=== PATIENT | female | born 1985 | race Caucasian/White ===

== ENCOUNTER 2016-08-02 03:17 | Observation (INO) | payer BC ==
[~2016-08-02] VITALS: Ht 170.2 cm; Wt 135.2 kg
--- NOTE | 2016-08-02 07:09 | ER ---
ADMIT: 08/02/2016 RM/LOC: 310 [facility] MR#: [id number] 2620 [facility] [address] [place], [place] [address] JARVIS CARRERA [address] [address] Emergency Room Report SEX: F AGE: 30 : 1985 DATE: 08/02/2016 CHIEF COMPLAINT: Obtunded. HISTORY OF PRESENT ILLNESS: The patient is a 30-year-old female with complex psychiatric history. Transferred tonight by [facility] for increasing delirium over the weekend since being titrated off Zoloft and titrated up on Prozac by [facility]. Patient was evaluated earlier in the day by Lissett Oviedo at [facility], who discussed with family admission. The patient and mother denies any headache, recent fall, fevers, chills, cough, nausea, vomiting, diarrhea or urinary symptoms. Likewise, denies any overdose, suicidal ideation or past history of suicide. PAST MEDICAL HISTORY: ILLNESSES: Idiopathic sinus tachycardia, cause unknown; depression; ADHD; anxiety; fibromyalgia; irritable bowel syndrome; anaphylaxis to the cefprozil with serum sickness; cervical cancer; kidney stones. OPERATIONS: Cervical cold cone, septorhinoplasty, extracorporeal shock wave lithotripsy and stents. ALLERGIES: MULTIPLE, PLEASE SEE ELECTRONIC MEDICAL RECORD. MEDICATIONS: Please see nurse's MAR. 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 Occasional alcoholic beverage and smoking. No illicit drugs. FAMILY HISTORY: Negative per chart review. REVIEW OF SYSTEMS: A 12-point review of systems negative for all other systems, illnesses, or operations except as outlined above. PHYSICAL EXAMINATION: VITAL SIGNS: Temp 97.1, pulse 69, respirations 22, BP 86/73, SaO2 of 97% on room air. GENERAL: Obtunded, delirious, but will respond to verbal stimuli. Able to protect her own airway. No jaundice, icterus or diaphoresis. HEENT: Normocephalic. No evidence of trauma, epistaxis, rhinorrhea or otorrhea. NECK: Supple without meningismus. CHEST: Clear. Breath sounds equal. HEART: Regular rate and rhythm without murmur, gallop, or edema. ABDOMEN: Soft, obese, nontender, nondistended without mass or megaly. Bowel sounds hypoactive. EXTREMITIES: No evidence of Homans sign, synovitis, or dermatitis. NEURO: EOMI, PERRLA. No lateralizing signs. She will stand, bear weight, but is ataxic. MENTAL STATUS: Slurred speech, delirium, depressed mood, blunted affect. Denies suicidal ideation. MEDICAL DECISION MAKING: The patient is hypotensive and obtunded with ADMIT: 08/02/2016 RM/LOC: 310 [facility] MR#: [id number] [address] [address] JARVIS CARRERA [address] [place] [address] Emergency Room Report SEX: F AGE: 30 : 1985 syndrome consistent with narcotic overdose. The patient was given Narcan 0.8 mg over the course of 20 minutes with no change, followed then by Romazicon 0.5 mg with no change. The patient was given a fluid bolus. Syndrome is now most consistent with drug-induced delirium from multiple psychotropics. Recommend drug-free washout and close observation. Discussed case with Dr. Mckeon, who agreed and gave orders to nursing staff. Due to patient's hypotension, delirium, and obtunded mental state, ICU status is required. Due to the patient's presentation, findings, and intervention, 30 minutes of critical care is warranted. DIAGNOSES: 1. Drug-induced delirium. 2. History of anaphylaxis due to cefprozil with serum sickness. 3. Mastocytosis. 4. Depression. RECOMMENDATION: Admit inpatient ICU for Dr. Eduin Tsai. ADMISSION/DISCHARGE CONDITION: Stable. Patient is a full code. Onofre Maurer MD/ nate JOB #: [id number] CC: Eduin Tsai MD, Attending Physician Eduin Tsai MD, Family Physician Eduin Tsai MD
--- NOTE | 2016-08-03 16:45 | HP ---
ADMIT: 08/02/2016 RM/LOC: 310 [facility] MR#: [id number] 2620 [facility] [id number] [place], [place] [address] JARVIS CARRERA [address] [address] History and Physical SEX: F AGE: 30 : 1985 DATE OF SERVICE: CHIEF COMPLAINT: Increasing lethargy and disorientation over the last 48 hours - possible seizure 24 hours prior to presentation in the ER. HISTORY OF PRESENT ILLNESS: Jarvis is a 30-year-old woman with a very complicated past medical history as outlined below. She had been hospitalized here at [place] from 02/15/2016 to 02/21/2016 with acute serum sickness with anaphylaxis - apparently secondary to cephalosporin, this on top of her chronic anxiety and depression. We had consultations from Dermatology, Rheumatology, Infectious Disease, and Critical Care. She was then subsequently transferred by helicopter to [facility] where she was hospitalized for several more weeks both in acute stay area and rehab with the final diagnosis there of a "mass cell activation disorder"-for which she has been followed by Dr. Lorie Emmanuel, at [facility]. As part of her [facility] evaluation, it was felt that she might have underlying other psychiatric illness including bipolar disorder or just chronic anxiety and severe depression. She had been on a number of different medications. She had been followed by a mental health professional Marlee Ward NP, since her dismissal from the hospital here in [place]. Ms. Ward had apparently left and she saw Dr. Wing last week and "he did a new scan to determine where my brain damage is located." Apparently new scan is something "they can only do in [place]." He then changed her medications. He discontinued Rexulti (antipsychotic), had her wean her Zoloft from 200-150 mg and then continued downward titration. He added Prozac 40 mg daily and then Vyvanse 30 mg (that was last added about 4 days ago). Two nights ago, she began having all kinds of neurologic symptoms including a hard time breathing, slurred speech, difficulty urinating, diarrhea, and an apparent seizure that lasted about a minute and "was consistent with seizures that were diagnosed in [place]." She had facial drooping, no control of her tongue, and some generalized shaking. This resolved over about a minute and a half, but she continued to complain of headache and felt nauseated and felt faint. At home, she felt short of breath and O2 sats were 88%. She was seen in our office yesterday by Lissett Mendez PA-C in conjunction with Dr. Isacc Mckeon. By the time of that visit, she seemed pretty much back to baseline and her general physical and neurologic exam was essentially normal except for an unsteady gait. She was oriented x3 and had a little difficulty forming sentences and at times "appeared sleepy." At that point, her Prozac and Vyvanse were held and she was to speak to Dr. Wing today about it. She took her Zoloft 150 mg yesterday although retrospectively now, she states she is not taking any of her psychoactives for the last 48 hours. She then became increasingly delirious and confused and was brought into the emergency room by [facility] last evening at about 0300 hours or so. They found her to be hypotensive and obtunded "consistent with a med overdose." She did respond to verbal stimuli in the emergency room and she was able to protect her own airway. Her general physical exam is otherwise relatively benign except for slurred speech, depressed mood, blunted affect. She had fluid resuscitation in the emergency room and due to her hypotension and delirium, she was admitted to ICU. Since admission here, her mental status has essentially cleared except for "a little ADMIT: 08/02/2016 RM/LOC: 310 [facility] MR#: [id number] [address] [address] DEBI JARVIS M [address] [place] [address] History and Physical SEX: F AGE: 30 : 1985 trouble forming sentences" and she still has a bit of a headache. She states she still occasionally "sees some bright lights like seizures are going to happen again but I hope it does not." Otherwise her vital signs have been normal since the emergency room to ICU transfer. Abnormal laboratory studies in the ER include potassium of 2.8 mmol/L, calcium 6.7 mg/dL and magnesium 1.6 mg/dL - those have been replaced. PAST MEDICAL HISTORY: Again is complex. She was hospitalized from 02/15/2016 to 02/21/2016, here with acute serum sickness and anaphylaxis apparently with the cephalosporins this on top of her chronic anxiety and depression. She carries a diagnosis of possible bipolar disorder and ADHD with hyperactivity. She has generalized edema and has gained considerable weight since this episode. She has a generalized anxiety disorder and history of irritable bowel syndrome. She quit smoking in 2012. She has had intermittent issues with sinus tachycardia. She carries other diagnoses of history of abnormal Pap smears with cervical conization years ago, septorhinoplasty, kidney stones with extra corporeal shock wave lithotripsy and stents. CURRENT MEDICATIONS: Include: 1. Aerospan 80 mcg inhaled b.i.d. 2. Ambien 10 mg at bedtime. 3. Cetirizine 10 mg at bedtime. 4. Benadryl 50 mg q.6 hours p.r.n. 5. Dymista 137/50 mcg nasal solution. 6. EpiPen p.r.n. 7. Hydroxyzine 25 mg 3 at bedtime. 8. Lasix 40 mg one daily. 9. Lorazepam 1 mg q.8 hours p.r.n. 10.Metoprolol tartrate 25 mg 1/2 tab b.i.d. 11.Microgestin 1/20 tablet once a day. 12.MiraLax 17 g in juice daily. 13.Pazeo 0.7% ophthalmic solution b.i.d. 14.Protonix 40 mg daily. 15.Prozac 40 mg daily (new prescription). 16.Rexulti - recently on hold. 17.Singulair 10 mg daily. 18.Topamax 100 mg at bedtime. 19.Vyvanse 30 mg once a day (new prescription). 20.Xopenex inhaler p.r.n. 21.Zantac 150 mg b.i.d. 22.Zoloft 100 mg 2 daily (now on a taper). ALLERGIES: SHE REPORTS ALLERGIES TO NAPROXEN AND IS TO HAVE NO NSAIDS, CEPHALOSPORINS, CLINDAMYCIN, CODEINE (WITH EMESIS) AND MORPHINE (ASTHMA/SHORTNESS OF BREATH). 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 She drinks 1-2 cups of ADMIT: 08/02/2016 RM/LOC: 310 [facility] MR#: [id number] [address] [address] JARVIS CARRERA [address] [place] [address] History and Physical SEX: F AGE: 30 : 1985 coffee per day. She has quit smoking. She does not use alcohol. She lives in her home alone with her daughter but her parents are very attentive to her. FAMILY HISTORY: Positive for diabetes, asthma, and allergy. REVIEW OF SYSTEMS: Showing still some headache. She has not recently been ill in any other way. Denies any upper respiratory or gastrointestinal symptoms. She states she is swallowing well now. She has had no shortness of breath, but "I still have some discomfort in middle of my chest." She has had no cardiac dysrhythmias. She states bladder and bowel functions have been normal. Her generalized edema is persistent. There is no history for neurologic illnesses other than she has the above noted history for psychiatric illness. PHYSICAL EXAMINATION: GENERAL: In the ICU now, she is alert, sitting upright in no apparent distress. Seems oriented x3. VITAL SIGNS: Have shown that she is afebrile since admission. Pulses have ranged from 50-90 and then normal sinus rhythm. Blood pressures have ranged in the low-to-mid 90 systolic. HEENT: Her oral mucosa is reasonably hydrated. NECK: Supple. LUNGS: Actually clear anteriorly. CARDIAC: Regular without murmur. ABDOMEN: Soft without mass or tenderness. EXTREMITIES: Lower extremities show trace to 1+ edema. GENERAL NEUROLOGIC: Shows no focal neurologic signs. IMPRESSION: 1. Delirium with possible seizure - probable medication reaction. 2. Mast cell activation disorder. 3. Underlying psychiatric illness. 4. Status post several operations outlined above. PLAN: We will move her from ICU as her vitals seem stable. We will get Neurology consultation. We will notify Dr. Emmanuel of her admission. Let us see ADMIT: 08/02/2016 RM/LOC: 310 [facility] MR#: [id number] [address] [place] [id number] [place] [address] History and Physical SEX: F AGE: 30 : 1985 if we can get Psych consult through [facility] telemetry and then have her follow up with [facility] psychiatrist. We will continue to replace her potassium and magnesium. We will get Physical Therapy and Occupational Therapy involved to increase her activities and see how she does with that. I failed to mention above that her drug screen was positive for benzodiazepines and amphetamines - we will check to see of Vyvanse can cause a positive amphetamine test on drug screen - I anticipate it does! Again, there is no real history for illicit drug use. Further treatment will depend on her response to her initial therapies and the consultations. Eduin Tsai MD/ nate JOB #: [id number] CC: Eduin Tsai, Attending Physician Eduin Tsai, Family Physician
--- NOTE | 2016-08-04 11:29 | CO ---
ADMIT: 08/02/2016 RM/LOC: 505 [facility] MR#: [id number] [address] [address] JARVIS CARRERA [address] [address] Consultation SEX: F AGE: 30 : 1985 DATE OF CONSULTATION: 08/03/2016 ATTENDING PHYSICIAN: Eduni Tsai CONSULTING PHYSICIAN: John Malloy MD DATA: This is a 30-year-old female, currently admitted at [facility]. Consultation requested by local provider per hospital policy. DIAGNOSES AT THE TIME OF EVALUATION: F33.2 major depressive disorder, recurrent severe without psychotic features. F60.9 borderline personality disorder, posttraumatic stress disorder with dissociative symptoms and generalized anxiety disorder. RECOMMENDATIONS: After talking about risks, benefits, side-effects, and alternatives, the patient voiced understanding and consent for discontinuing Prozac and starting Trintellix 10 mg every day. Also all the other medications have been discontinued including Zoloft and Vyvanse. She is okay to continue on Topamax only plus whatever is for medical reasons. HISTORY: This lady ended up in the hospital recently in delirium basically for what later appeared to have serotonin syndrome. The patient is on psychotropic medications, so a psychiatric evaluation was requested. So, I reviewed the electronic records, the paper records, talked to the nurse for collateral information and finally I spoke with the patient face to face while she was in the company of her mother with her permission on screen using [employer]. The video and the audio were adequate for this session. The patient is a good historian. She states that her problems started very early in childhood because she has always been anxious. Anxiety is a daily event and she ended up not sleeping because of that. She ended up being tired because of being still anxious, kind of never actually controlled. The anxiety waxes and wanes, but is there most of the time. The patient also has had periods of serious depression longer than 2 weeks. Accompanied the depression, there is anhedonia, decreased concentration, decreased level of energy, hopeless, and helplessness. The patient has been before diagnosed with bipolar disorder, but the patient has not had even 1 day that might actually be considered myah or hypomania. Nevertheless, she has a long history of very intense affect instability, chronic feelings of emptiness, chronic low self-esteem, self-harm and even dissociation which might have come under the diagnosis. The patient has had occasional instances of her name being called when nobody was around but not more than that. She does not have any obsessional compulsion, no problems with eating disorder or gambling. She in last February had an anaphylactic shock and she ended up having intrusive memories, nightmares and startle response and a diagnosis of PTSD. The patient had been recently being on high dose of Zoloft, fluoxetine, and Vyvanse at the same time. SOCIAL HISTORY: The patient is a smoker, but not a drinker or drug user. ADMIT: 08/02/2016 RM/LOC: 505 [facility] MR#: [id number] [address] [address] JARVIS CARRERA [address] [place] [address] Consultation SEX: F AGE: 30 : 1985 PAST PSYCHIATRIC HISTORY: One previous psychiatric hospitalization at [facility] after the anaphylactic shock actually for being suicidal. No actual suicidal events. She sees a therapist in [place], Sola Beltrán. PAST MEDICAL HISTORY: Per history and physical. The patient actually apart from what is said, also snores, headaches, and sleepiness but her home sleep study that was negative. No sleep apnea. REVIEW OF SYSTEMS: The patient has above given medical and psychiatric problems. PERSONAL HISTORY: She lives in [place] with her daughter. She is a teacher, actually single. No legal problems or history of being in the . HISTORY OF ABUSE: She has never been abused physically, sexually, or psychologically, but after the anaphylactic shock, she meets the criteria for PTSD. FAMILY HISTORY: Noncontributory for psychiatric reason. MENTAL STATUS EXAMINATION: lady, cooperative. Good hygiene, good eye contact. No psychomotor agitation or retardation. Speech is normal in volume and production. Mood is described as depressed, anxious. Affect is broad and appropriate to thought content. Thought content level; the patient denies suicidal or homicidal ideation. No auditory hallucination. No delusional thoughts. Thought process; coherent, congruent. No loosening of association. Insight and judgment seemed to be fair to good. Memory is within normal limits. She is alert and oriented. Intelligence is average. STRENGTH: Intelligence. BARRIERS: Coping skills. John Malloy MD/ nate JOB #: [id number] CC: Eduin Tsai, Attending Physician Eduin Tsai, Family Physician
[2016-08-04] MEDS ORDERED: AMBIEN DPS10 MG PO (12:54)
[2016-08-04] MEDS ORDERED: XOPENEX HFA15 GM IH (12:54)
[2016-08-04] MEDS ORDERED: MICROGESTIN 211 EACH PO (12:54)
[2016-08-04] MEDS ORDERED: ZYRTEC DPS10 MG PO (12:55)
[2016-08-04] MEDS ORDERED: BENADRYL-DPS50 MG PO (12:56)
[2016-08-04] MEDS ORDERED: MICRO-K DPS10 MEQ PO (12:57)
[2016-08-04] MEDS ORDERED: ATIVAN-DPS1 MG PO (12:57)
[2017-01-23] MEDS ORDERED: AEROSPAN8.9 GM IH (14:11)
[2017-01-23] MEDS ORDERED: DYMISTA NASAL S23 GM NS (14:13)
[2017-01-23] MEDS ORDERED: LASIX DPS40 MG PO (14:13)
[2017-01-23] MEDS ORDERED: ALLEGRA ALLERG180 MG PO (14:14)
[2017-01-23] MEDS ORDERED: BENADRYL25 MG PO (14:14)
[2017-01-23] MEDS ORDERED: BUSPIRONE HCL7.5 MG PO (14:15)
[2017-01-23] MEDS ORDERED: LOESTRIN 21 1-1 EACH PO (14:15)
[2017-01-23] MEDS ORDERED: MONTELUKAST SOD10 MG PO (14:16)
[2017-01-23] MEDS ORDERED: PAZEO2.5 ML OU (14:16)
[2017-01-23] MEDS ORDERED: MIRALAX PACKET17 GM PO (14:16)
[2017-01-23] MEDS ORDERED: PROTONIX40 MG PO (14:16)
[2017-01-23] MEDS ORDERED: GLUCOPHAGE-DPS500 MG PO (14:16)
[2017-01-23] MEDS ORDERED: ZANTAC DPS150 MG PO (14:17)
[2017-01-23] MEDS ORDERED: TOPAMAX200 MG PO (14:17)
[2017-01-23] MEDS ORDERED: ATARAX-DPS25 MG PO (14:18)
[2017-01-23] MEDS ORDERED: EPIPEN 2-P0.3 MG/0.3 SQ (14:19)
[2017-01-23] MEDS ORDERED: TYLENOL EXTRA500 M1 PO (14:20)
[2017-01-23] MEDS ORDERED: TRINTELLIX PO (14:20)
[2017-01-23] MEDS ORDERED: XOPENEX HFA15 GM IH (14:21)
[2017-01-23] MEDS ORDERED: DULCOLAX-DPS10 MG PR (14:21)
[2017-01-23] MEDS ORDERED: ZOFRAN DPS8 MG PO (14:22)
[2017-01-23] MEDS ORDERED: DILAUDID2 MG PO (14:22)
[2017-01-23] MEDS ORDERED: PHENERGAN DPS25 MG PO (14:22)
[2017-01-23] MEDS ORDERED: DELTASONE DPS20 MG PO (14:23)
[2017-01-23] MEDS ORDERED: ATIVAN-DPS1 MG PO (14:24)
[2017-02-10] MEDS ORDERED: DELTASONE DPS10 MG PO (13:21)
[2017-02-10] MEDS ORDERED: DELTASONE DPS20 MG PO (13:22)
== END 2016-08-03 15:32 | disposition home or self-care (01) ==
LOC: ER 03:17 → 3ICU 05:00 → 5MS 05:00 → 3ICU 13:46 → 5MS 20:46
PROVIDERS: ADMIT Family Medicine
DX: F33.2 Major depressive disorder, recurrent severe without psychotic features (principal); F43.10 Post-traumatic stress disorder, unspecified; F60.9 Personality disorder, unspecified; F41.1 Generalized anxiety disorder; D89.40 Mast cell activation, unspecified; Z88.1 Allergy status to other antibiotic agents; Z88.5 Allergy status to narcotic agent; Z88.8 Allergy status to other drugs, medicaments and biological substances; Z87.442 Personal history of urinary calculi; Z79.899 Other long term (current) drug therapy; Z87.891 Personal history of nicotine dependence; Z98.890 Other specified postprocedural states

== ENCOUNTER 2017-01-19 12:11 | Inpatient (IN) | payer BC ==
[~2017-01-19] VITALS: Ht 170.2 cm; Wt 135.2 kg
--- NOTE | ~2017-01-19 | ER ---
ADMIT: 01/19/2017 RM/LOC: ER [facility] MR#: [id number] [address] [address] JARVIS CARRERA [address] [place] [address] Emergency Room Report SEX: F AGE: 31 : 1985 DATE: 01/19/2017 ADDENDUM: A 31-year-old white female with mast cell activation disorder coming in after being seen yesterday for anaphylaxis. She started to itch again, she started to have trouble breathing, and her lips started swell again. Ambulance was called, they gave her epi 0.3 in the field. I repeated that here. Also Benadryl 50 mg IV. She also complains of abdominal pain ever since she has had her scope. I do not think that is anything acute. I did speak with Dr. Emmanuel who is the strategic planner who had seen her and thinks she needs to be observed over night since she bounced right back. I spoke with Dr. Tsai, he will admit her observation. Patient has an IV. CONDITION ON DISCHARGE: Fair. Carlos Greco MD/ nate JOB #: [id number] CC: Carlos Greco MD, Attending Physician Eduin Tsai MD, Family Physician
--- NOTE | ~2017-01-19 | CO ---
ADMIT: 01/19/2017 RM/LOC: 311 [facility] MR#: [id number] 2620 [facility] [address] [place], [place] [address] JARVIS CARRERA [address] [address] Consultation SEX: F AGE: 31 : 1985 DATE OF CONSULTATION: 01/19/2017 ATTENDING PHYSICIAN: Eduin Tsai CONSULTING PHYSICIAN: Avi Burns MD HISTORY OF PRESENT ILLNESS: A 31-year-old female, smoker with multiple hospitalizations. Last seen by me on 02/19/2016, but subsequent to that visit, we had transferred her to [facility] and she ultimately was given a diagnosis of mast cell activation disorder and she has been recently stable since then, but developed acute onset of symptoms for the past 2 days. The patient is actually being planned for [facility] visit in the next few days, but developed nausea, vomiting, chest pain, who went to her manager produce's office and had anaphylaxis type symptoms treated with epinephrine x3. The patient also had a 90-second tonic-colonic seizure first since February of 2017. The patient overall feels well, but tired. No fever or chills. Some abdominal discomfort, but she has not had a bowel movement in over four days (just notable patient's CT at the time of my visit, 02/19/2016, had significant amount of stool present as well). PAST SURGICAL HISTORY AND PAST MEDICAL HISTORY: SURGERY AND OPERATIONS: None. ILLNESSES: ADD; allergic angioedema; anxiety; cervical cancer; hypertension; irritable bowel; kidney stones; seizure disorder, nonconvulsive typically with status epilepticus (per [facility] note). MEDICATIONS: 1. Cardizem 30 mg every 6. 2. Prednisone 50 mg for 2 days, 10 mg for seven days, 5 for seven days. 3. Gabapentin 600 three times a day. 4. Tylenol 1000 q.6 hours p.r.n. 5. Zoloft 200 mg daily. 6. Zyrtec 10 mg daily. 7. EpiPen p.r.n. 8. Ativan 1 mg p.r.n. q.8 hours. 9. Nicoderm patch 14 mg daily. 10.Nicorette gum as needed. 11.Protonix 40 mg daily. 12.Seroquel 100 mg b.i.d. and 200 at bedtime, 50 mg every 8 hours as needed. 13.Ambien 5 mg at bedtime. 14.Benadryl 50 mg every 6 hours p.r.n. 15.Hydrochlorothiazide daily. 16.Mobic 50 mg daily. 17.Atarax 75 mg at bedtime. 18.GlycoLax 17 g b.i.d. 19.Ditropan p.r.n. 20.Pyridium. ADMIT: 01/19/2017 RM/LOC: 311 [facility] MR#: [id number] [address] [address] [place] [address] Consultation SEX: F AGE: 31 : 1985 21.Singulair 10 mg at bedtime. 22.Zantac 150 mg b.i.d. ALLERGIES: 1. CLINDAMYCIN. 2. CEFPROZIL. 3. CODEINE. FAMILY HISTORY: Mother with type 2 diabetes. SOCIAL HISTORY: Single, with daughter. Alcohol, occasional. Tobacco positive. No recreational drugs. REVIEW OF SYSTEMS: A 12-point review completed as above; otherwise, negative. PHYSICAL EXAMINATION: GENERAL: Awake, alert, responsive. VITAL SIGNS: Blood pressure 103/65, pulse 97, respiratory rate 20, temp 96.9. HEENT: Nares and throat are clear and dry. Mallampati III. No lymphadenopathy. HEART: Regular rate and rhythm. LUNGS: Essentially clear to auscultation, though very mildly prolonged expiratory phase, rare wheeze. ABDOMEN: Slightly tender diffusely. No definite hepatosplenomegaly. EXTREMITIES: Positive edema diffusely. Motor and sensory grossly intact. LABORATORY DATA: BUN 16, creatinine 1.3, potassium 3.5, bicarb 18, albumin 3.4, CRP 0.86. WBC 20.7, hemoglobin 12.9, platelets 395. Portable chest x-ray, normal, no infiltrates, normal heart size. ASSESSMENT AND RECOMMENDATION: 1. Anaphylaxis, secondary to mast cell activation. ADMIT: 01/19/2017 RM/LOC: 311 [facility] MR#: [id number] [address] [address] JARVIS CARRERA [address] [place] [address] Consultation SEX: F AGE: 31 : 1985 2. History of seizures - The patient did have a seizure today, typically controlled on Topamax and Ativan. She has never had Keppra previously according to family. She appears stable at present. 3. Non-gap metabolic acidosis. Anion gap of 11. 4. Constipation. The patient will have Dulcolax added. 5. Anxiety/depression. 6. Tobacco abuse. Discussed with her about the importance of quitting smoking. The patient has a scheduled appointment next week in [facility] and they would like to try to keep. She will be stabilized with IV steroids and be considered for future transfer should she show stabilizing effects on current steroids. Avi Burns MD/ nate JOB #: [id number] CC: Eduin Tsai, Attending Physician Eduin Tsai, Family Physician
[~2017-01-19 12:11] MED LIST: AMBIEN DPS10 MG PO; ATIVAN-DPS1 MG PO; BENADRYL-DPS50 MG PO; MICRO-K DPS10 MEQ PO; MICROGESTIN 211 EACH PO; XOPENEX HFA15 GM IH; ZYRTEC DPS10 MG PO
--- NOTE | 2017-01-20 11:00 | ER ---
ADMIT: 01/19/2017 RM/LOC: 311 [facility] MR#: [id number] [address] [id number] JARVIS CARRERA [address] [address] Emergency Room Report SEX: F AGE: 31 : 1985 DATE: 01/19/2017 SECONDARY ADDENDUM: While the patient was here for her allergies, we did re- screen her and she had a positive SIRS, which indicated we get blood work. We did get a lactate, which was high of 4.2, so we have been initiating fluids so she is getting her 30 mL/kg of fluid. We are going to cover her with Levaquin though her source of any infection is unknown. We do not think that she has an infection, cannot rule out her mast cell disease causing this, but I did speak with Dr. Tsai. So she will have her fluid and antibiotics in at the appropriate time. CONDITION DISCHARGE: Stable. Carlos Greco MD/ modl JOB #: [id number] CC: Eduin Tsai MD, Attending Physician Eduin Tsai MD, Family Physician
--- NOTE | 2017-01-20 17:13 | HP ---
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 She was also admitted to the ER yesterday due to similar systems. She was given three doses of epinephrine and sent home with prednisone. This morning, she woke up with symptoms of nausea and vomiting, and the chest pain that radiated down the left arm and also included the jaw. Her mom also noted that her eyes were moving back and forth, then Nystagmus pattern all morning. She had an Allergy appointment today and her symptoms began as soon as she arrived to her Allergy appointment. She started having symptoms of anaphylaxis and so they immediately called the paramedics and she was given one shot of epinephrine at the Allergy clinic and two more shots of epinephrine before arrival. As soon as she got to the Emergency Department, she was given one more shot of epinephrine. Shortly after arrival, she had a 90-second tonic-clonic seizure without a postictal state, this is her first seizure since June 2016. Mom stated that Jarvis has not had a bowel movement in 4 days for which she is currently taking MiraLax for, which seems to be of no help. She is scheduled to see an word processing specialist at the [facility] next Monday in [place], [place]. Jarvis is noted to have 3 to 4 weeks of upper stomach pain with possibility of gallbladder pathology. On Monday of this week, she had an upper endoscopy done and that seems to be when all of the symptoms started. ASSESSMENT: Jarvis's diagnosis is an acute exacerbation of her mast cell disorder with possibility of sepsis. Ramez Rios, M3 Student / Eduin Tsai MD / nate JOB #: [id number] CC: Eduin Tsai, Attending Physician Eduin Tsai, Family Physician
[2017-01-23] MEDS ORDERED: AEROSPAN8.9 GM IH (14:11)
[2017-01-23] MEDS ORDERED: DYMISTA NASAL S23 GM NS (14:13)
[2017-01-23] MEDS ORDERED: LASIX DPS40 MG PO (14:13)
[2017-01-23] MEDS ORDERED: ALLEGRA ALLERG180 MG PO (14:14)
[2017-01-23] MEDS ORDERED: BENADRYL25 MG PO (14:14)
[2017-01-23] MEDS ORDERED: LOESTRIN 21 1-1 EACH PO (14:15)
[2017-01-23] MEDS ORDERED: BUSPIRONE HCL7.5 MG PO (14:15)
[2017-01-23] MEDS ORDERED: GLUCOPHAGE-DPS500 MG PO (14:16)
[2017-01-23] MEDS ORDERED: PAZEO2.5 ML OU (14:16)
[2017-01-23] MEDS ORDERED: PROTONIX40 MG PO (14:16)
[2017-01-23] MEDS ORDERED: MIRALAX PACKET17 GM PO (14:16)
[2017-01-23] MEDS ORDERED: MONTELUKAST SOD10 MG PO (14:16)
[2017-01-23] MEDS ORDERED: TOPAMAX200 MG PO (14:17)
[2017-01-23] MEDS ORDERED: ZANTAC DPS150 MG PO (14:17)
[2017-01-23] MEDS ORDERED: ATARAX DPS50 MG PO (14:18)
[2017-01-23] MEDS ORDERED: EPIPEN 2-P0.3 MG/0.3 SQ (14:19)
[2017-01-23] MEDS ORDERED: BRINTELLIX10 MG PO (14:20)
[2017-01-23] MEDS ORDERED: TYLENOL EXTRA500 M1 PO (14:20)
[2017-01-23] MEDS ORDERED: DULCOLAX-DPS10 MG PR (14:21)
[2017-01-23] MEDS ORDERED: XOPENEX HFA15 GM IH (14:21)
[2017-01-23] MEDS ORDERED: DILAUDID2 MG PO (14:22)
[2017-01-23] MEDS ORDERED: ZOFRAN DPS8 MG PO (14:22)
[2017-01-23] MEDS ORDERED: PHENERGAN DPS25 MG PO (14:22)
[2017-01-23] MEDS ORDERED: DELTASONE DPS20 MG PO (14:23)
[2017-01-23] MEDS ORDERED: ATIVAN-DPS2 MG PO (14:24)
== END 2017-01-22 15:11 | disposition home or self-care (01) | DRG 815 ==
LOC: ER 12:11 → 3ICU 13:30
PROVIDERS: ADMIT Family Medicine
DX: D89.40 Mast cell activation, unspecified (principal); T78.2XXA Anaphylactic shock, unspecified, initial encounter; E87.2 Acidosis; Z68.42 Body mass index [BMI] 45.0-49.9, adult; F17.210 Nicotine dependence, cigarettes, uncomplicated; F41.9 Anxiety disorder, unspecified; I10 Essential (primary) hypertension; K58.9 Irritable bowel syndrome, unspecified; R41.0 Disorientation, unspecified; G40.909 Epilepsy, unspecified, not intractable, without status epilepticus; F32.9 Major depressive disorder, single episode, unspecified; K59.00 Constipation, unspecified; K21.9 Gastro-esophageal reflux disease without esophagitis; E66.9 Obesity, unspecified; Z85.41 Personal history of malignant neoplasm of cervix uteri

== ENCOUNTER 2017-02-05 13:12 | Emergency (ER) | payer BC ==
[~2017-02-05 13:12] MED LIST changes: +AEROSPAN8.9 GM IH; +ALLEGRA ALLERG180 MG PO; +ATARAX DPS50 MG PO; +ATIVAN-DPS2 MG PO; +BENADRYL25 MG PO; +BRINTELLIX10 MG PO; +BUSPIRONE HCL7.5 MG PO; +DELTASONE DPS20 MG PO; +DILAUDID2 MG PO; +DULCOLAX-DPS10 MG PR; +DYMISTA NASAL S23 GM NS; +EPIPEN 2-P0.3 MG/0.3 SQ; +GLUCOPHAGE-DPS500 MG PO; +LASIX DPS40 MG PO; +LOESTRIN 21 1-1 EACH PO; +MIRALAX PACKET17 GM PO; +MONTELUKAST SOD10 MG PO; +PAZEO2.5 ML OU; +PHENERGAN DPS25 MG PO; +PROTONIX40 MG PO; +TOPAMAX200 MG PO; +TYLENOL EXTRA500 M1 PO; +ZANTAC DPS150 MG PO; +ZOFRAN DPS8 MG PO
--- NOTE | 2017-02-06 23:41 | ER ---
ADMIT: 02/05/2017 RM/LOC: ER [facility] MR#: [id number] 2620 [facility] [address] [place] [id number] JARVIS CARRERA [address] [address] Emergency Room Report SEX: F AGE: 31 : 1985 DATE: 02/05/2017 TIME: 1312 hours Please refer to my T-sheet for complete H and P. HISTORY OF PRESENT ILLNESS: Briefly, the patient is a 31-year-old that comes in with shortness breath and reaction again. She has known history of a mast cell cytosis. She is currently on 20 mg of prednisone 3 times a day. She used EpiPen's multiple in the past. The fall has been worst for here due to the ragweed around here. She felt tight in the throat. She took an EpiPen, and 50 mg of Benadryl. She gets here, she is feeling somewhat better. PHYSICAL EXAMINATION: VITAL SIGNS: Stable. Her blood pressure was slightly low at first at 89/71, pulse 122. GENERAL: No acute distress. HEENT: Slightly nunez facies. TMs are clear. Nose clear. Throat is clear. LUNGS: Clear. No wheezes. HEART: Regular. ABDOMEN: Soft. SKIN: No rash. EMERGENCY DEPARTMENT COURSE: We gave her Decadron 20 IM. She had a gram of Tylenol. We watched her for about an hour or hour and a half in Emergency Department. She was feeling better. I had a long discussion and she was ready for discharge. ASSESSMENT: 1. Acute allergic reaction. 2. Mast cell cytosis. PLAN: Continue her prednisone at the same dose. I refilled her EpiPen's. May use Benadryl p.r.n. and then I want to schedule 25 b.i.d., and keep her appointment coming up in the next few days. Ventura Nascimento MD/ nate JOB #: [id number] CC: Carlos Greco MD, Attending Physician Eduin Tsai MD, Family Physician Lorie Emmanuel MD
== END 2017-02-05 14:34 | disposition home or self-care (01) ==
LOC: ER 13:12
DX: T78.40XA Allergy, unspecified, initial encounter (principal); Q82.2 Congenital cutaneous mastocytosis; I10 Essential (primary) hypertension; F32.9 Major depressive disorder, single episode, unspecified; F17.200 Nicotine dependence, unspecified, uncomplicated; F41.9 Anxiety disorder, unspecified; Z88.8 Allergy status to other drugs, medicaments and biological substances; Z88.1 Allergy status to other antibiotic agents; Z88.5 Allergy status to narcotic agent; Z91.041 Radiographic dye allergy status